=== PATIENT | male | born 1955 | race Two or more races ===

== ENCOUNTER → 2016-06-25 | Outpatient (CLI) | payer MEDICARE, OTHER ==
--- NOTE | 2016-06-25 15:57 | Diagnostic Imaging Report ---
Indication: COUGH Technique: One view of the chest Comparison: none Findings: Lungs and pleural spaces are clear. Heart size is normal. There is some focal pleural thickening associated with rib fracture deformities on the left again demonstrated. Findings are unchanged Impression: No acute process
== END | disposition home or self-care (01) ==
LOC: RAD 10:21
DX: R05 Cough (principal)
CPT/HCPCS: 71020